=== PATIENT | male | born 1990 | race Caucasian/White ===

== ENCOUNTER 2016-07-23 22:57 | Emergency (ER) | payer BC ==
[2016-07-23] MEDS ORDERED: Sodium Chloride 0.9% 2.5 ML Syringe FLUSH PRN (23:10)
[2016-07-23] MEDS ORDERED: Sodium Chloride 0.9% 10 ML Syringe FLUSH PRN (23:10)
[2016-07-23] MEDS ORDERED: Ketorolac 30 MG/ML SDV IVPUSH ONE (23:11)
[2016-07-23] MEDS ORDERED: HYDROmorphone 2 MG/ML Syringe IVPUSH ONE (23:11)
[2016-07-23] MEDS ORDERED: Sodium Chloride 0.9% 1,000 ML IV ONE (23:11)
[2016-07-23] MEDS ORDERED: Ondansetron 4 MG/2 ML SDV IVPUSH ONE (23:11)
--- NOTE | 2016-07-23 23:14 | EDM.PDOC ---
ED HPI GENERAL MEDICAL PROBLEM - General Chief Complaint: Abdominal Pain Stated Complaint: ABDOMINAL PAIN Time Seen by Provider: 07/23/16 22:58 - History of Present Illness INITIAL COMMENTS - FREE TEXT/NARRATIVE: HISTORY AND PHYSICAL: History of present illness: The patient is a healthy 26-year-old male with no stated medical problems who presents with complaints of sudden onset of right lower abdominal pain that started when he was resting at home. The patient had just eaten some grilled chicken and had had a normal day without any systemic complaints when the pain suddenly occurred. Patient denies any swelling or discomfort in his testicles and has no flank pain. Patient had 2 episodes of vomiting secondary to the pain prior to coming here and had normal bowel movements earlier today. Patient has not taken anything for pain prior to coming here. He denies any recent trauma to his abdomen and denies STD risks. Patient says he had the pain approximately one year ago and was seen here for similar but it was not as severe. The patient also said he had some discomfort several days ago but again not this level. Review of systems: As per history of present illness and below otherwise all systems reviewed and negative. Past medical history: As per history of present illness and as reviewed below otherwise noncontributory. Surgical history: As per history of present illness and as reviewed below otherwise noncontributory. Social history: No reported history of drug or alcohol abuse. Family history: As per history of present illness and as reviewed below otherwise noncontributory. Physical exam: General: Well-developed well-nourished male is nontoxic and is rolling around the bed and very anxious grabbing his right side. Vital signs been noted by me HEENT: Atraumatic, normocephalic, negative for conjunctival pallor or scleral icterus, mucous membranes moist, throat clear, neck supple, nontender, trachea midline. Lungs: Clear to auscultation, breath sounds equal bilaterally, chest nontender. Heart: S1S2, regular, negative for clicks, rubs, or JVD. Abdomen: Soft, nondistended, hypoactive bowel sounds, mildly tender on deep palpation in the right lower quadrant without rebound or guarding there is no tympany. Negative for masses or hepatosplenomegaly. Negative for costovertebral tenderness. Pelvis: Stable nontender. Genitourinary: Deferred. Rectal: Deferred. Extremities: Atraumatic, negative for cords or calf pain. Neurovascular unremarkable. Neuro: Awake, alert, oriented. Cranial nerves II through XII unremarkable. Cerebellum unremarkable. Motor and sensory unremarkable throughout. Exam nonfocal. Diagnostics: CBC CMP UA urine culture CT scan of the abdomen and pelvis Therapeutics: IV fluids Zofran Toradol Dilaudid Flomax Patient states he is still having some discomfort with like to try to go home and I will give him pain medication Zofran and Flomax for home Impression: Right ureterolithiasis Definitive disposition and diagnosis as appropriate pending reevaluation and review of above. RLQ Pain Score (Numeric/FACES): 9 - Related Data Allergies Allergy/AdvReac Type Severity Reaction Status Date / Time No Known Allergies Allergy Verified 07/23/16 23:07 Home Meds: Home Meds . [No Known Home Meds] 06/02/15 [History] Past Medical History HEENT History: Reports: None Cardiovascular History: Reports: Heart murmur Respiratory History: Reports: None Gastrointestinal History: Reports: None Genitourinary History: Reports: None Musculoskeletal History: Reports: Other (see below) Other Musculoskeletal History: Partial amputation Neurological History: Reports: None Psychiatric History: Reports: None Endocrine/Metabolic History: Reports: None Hematologic History: Reports: None Immunologic History: Reports: None Oncologic (Cancer) History: Reports: None Dermatologic History: Reports: None - Infectious Disease History Infectious Disease History: Reports: Chicken pox - Past Surgical History HEENT Surgical History: Reports: Other (see below) Other HEENT Surgeries/Procedures: Left Ear FB surgery Musculoskeletal Surgical History: Reports: Other (see below) Other Musculoskeletal Surgeries/Procedures:: 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 ED EXAM, GENERAL - Physical Exam Exam: See Below (See dictation) Course - Vital Signs Last Recorded V/S: Last Vital Signs Temp 36.9 C 07/23/16 23:10 Pulse 118 H 07/23/16 23:10 Resp 18 07/23/16 23:10 BP 134/96 H 07/23/16 23:10 Pulse Ox 95 07/23/16 23:10 - Orders/Labs/Meds Orders: Active Orders 24 hr Category Date Time Status Communication Order [RC] STAT Care 07/24/16 00:30 Active Abdomen Pelvis w wo Cont [CT] Stat Exams 07/23/16 23:10 Taken CULTURE URINE [RM] Stat Lab 07/23/16 23:50 Received Sodium Chloride 0.9% [Saline Flush] Med 07/23/16 23:10 Active 10 ml FLUSH ASDIRECTED PRN Sodium Chloride 0.9% [Saline Flush] Med 07/23/16 23:10 Active 2.5 ml FLUSH ASDIRECTED PRN Saline Lock Insert [OM.PC] Stat Oth 07/23/16 23:10 Ordered Medication Orders Sodium Chloride (Saline Flush) 10 ml FLUSH ASDIRECTED PRN PRN Reason: Keep Vein Open Sodium Chloride (Saline Flush) 2.5 ml FLUSH ASDIRECTED PRN PRN Reason: Keep Vein Open Labs: Laboratory Tests 07/23/16 07/23/16 07/23/16 Range/Units 23:05 23:05 23:50 WBC 11.34 H (4.0-11.0) K/uL RBC 5.08 (4.50-5.90) M/uL Hgb 15.0 (13.0-17.0) g/dL Hct 43.4 (38.0-50.0) % MCV 85.4 (80.0-98.0) fL MCH 29.5 (27.0-32.0) pg MCHC 34.6 (31.0-37.0) g/dL RDW Std Deviation 38.8 (28.0-62.0) fl RDW Coeff of Saeed 13 (11.0-15.0) % Plt Count 244 (150-400) K/uL MPV 10.50 (7.40-12.00) fL Neut % (Auto) 33.9 L (48.0-80.0) % Lymph % (Auto) 58.0 H (16.0-40.0) % [place] % (Auto) 5.2 (0.0-15.0) % Eos % (Auto) 2.7 (0.0-7.0) % Baso % (Auto) 0.2 (0.0-1.5) % Neut # (Auto) 3.8 (1.4-5.7) K/uL Lymph # (Auto) 6.6 H (0.6-2.4) K/uL [place] # (Auto) 0.6 (0.0-0.8) K/uL Eos # (Auto) 0.3 (0.0-0.7) K/uL Baso # (Auto) 0.0 (0.0-0.1) K/uL Nucleated RBC % 0.0 /100WBC Nucleated RBCs # 0 K/uL Sodium 142 (136-146) mmol/L Potassium 3.7 (3.5-5.1) mmol/L Chloride 107 (98-110) mmol/L Carbon Dioxide 21 (21-31) mmol/L BUN 19 (6.0-23.0) mg/dL Creatinine 1.2 (0.6-1.5) mg/dL Est Cr Clr Drug Dosing 94.92 mL/min Estimated GFR (MDRD) > 60.0 ml/min Glucose 114 H (60-110) mg/dL Calcium 9.7 (8.8-10.8) mg/dL Total Bilirubin 0.5 (0.1-1.5) mg/dL AST 24 (5-40) IU/L ALT 20 (8-54) IU/L Alkaline Phosphatase 48 (40-150) Total Protein 7.8 (6.0-8.0) g/dL Albumin 4.6 (3.5-5.0) g/dL Globulin 3.2 (2.0-3.5) g/dL Albumin/Globulin Ratio 1.4 (1.3-2.8) Urine Color YELLOW Urine Appearance CLEAR Urine pH 7.0 (5.0-8.0) Ur Specific [place] 1.015 (1.001-1.035) Urine Protein NEGATIVE (NEGATIVE) mg/dL Urine Glucose (UA) NEGATIVE (NEGATIVE) mg/dL Urine Ketones TRACE H (NEGATIVE) mg/dL Urine Occult Blood TRACE-INTACT (NEGATIVE) Urine Nitrite NEGATIVE (NEGATIVE) Urine Bilirubin NEGATIVE (NEGATIVE) Urine Urobilinogen 0.2 (<2.0) EU/dL Ur Leukocyte Esterase NEGATIVE (NEGATIVE) Urine RBC 2-3 (0-2/HPF) Urine WBC 1-3 (0-5/HPF) Ur Epithelial Cells OCCASIONAL (NONE-FEW) Urine Bacteria RARE (NEGATIVE) Meds: Medications Generic Name Dose Route Start Last Admin Trade Name Carina PRN Reason Stop Dose Admin Sodium Chloride 10 ml 07/23/16 23:10 Saline Flush FLUSH ASDIRECTED PRN Keep Vein Open Sodium Chloride 2.5 ml 07/23/16 23:10 Saline Flush FLUSH ASDIRECTED PRN Keep Vein Open Discontinued Medications Generic Name Dose Route Start Last Admin Trade Name Carina PRN Reason Stop Dose Admin Diphenhydramine HCl 50 mg 07/24/16 00:37 Benadryl IVPUSH 07/24/16 00:38 ONETIME ONE Hydromorphone HCl 1 mg 07/23/16 23:11 07/23/16 23:29 Dilaudid IVPUSH 07/23/16 23:12 1 mg ONETIME ONE Administration Hydromorphone HCl 1 mg 07/24/16 00:07 07/24/16 00:14 Dilaudid IVPUSH 07/24/16 00:08 1 mg ONETIME ONE Administration Sodium Chloride 1,000 mls @ 999 mls/hr 07/23/16 23:11 07/23/16 23:28 Normal Saline IV 07/24/16 00:11 999 mls/hr STAT ONE Administration Iopamidol 100 ml 07/24/16 00:08 07/24/16 00:09 Isovue-370 (76%) IV 07/24/16 00:09 100 ml ONETIME ONE Administration Ketorolac Tromethamine 30 mg 07/23/16 23:11 07/23/16 23:30 Toradol IVPUSH 07/23/16 23:12 30 mg ONETIME ONE Administration Ondansetron HCl 4 mg 07/23/16 23:11 07/23/16 23:28 Zofran IVPUSH 07/23/16 23:12 4 mg ONETIME ONE Administration Tamsulosin HCl 0.4 mg 07/24/16 00:30 07/24/16 00:35 Flomax PO 07/24/16 00:31 0.4 mg ONETIME ONE Administration Departure - Departure Time of Disposition: 01:04 Disposition: Home, Self-Care 01 Condition: good Clinical Impression: Ureterolithiasis, Kidney stones Forms: ED Department Discharge Additional Instructions: The following information is given to patients seen in the emergency department who are being discharged to home. This information is to outline your options for follow-up care. We provide all patients seen in our emergency department with a follow-up referral. The need for follow-up, as well as the timing and circumstances, are variable depending upon the specifics of your emergency department visit. If you don't have a primary care physician on staff, we will provide you with a referral. We always advise you to contact your personal physician following an emergency department visit to inform them of the circumstance of the visit and for follow-up with them and/or the need for any referrals to a consulting specialist. The emergency department will also refer you to a specialist when appropriate. This referral assures that you have the opportunity for followup care with a specialist. All of these measure are taken in an effort to provide you with optimal care, which includes your followup. Under all circumstances we always encourage you to contact your private physician who remains a resource for coordinating your care. When calling for followup care, please make the office aware that this follow-up is from your recent emergency room visit. If for any reason you are refused follow-up, please contact the [facility] emergency department at and ask to speak to the emergency department charge nurse. [facility] Primary care- Internal Medicine and [facility] [address] [place] [id number] [facility] Specialty Care-Urology [address] [place] [id number] Please push hydration and strain all urine looking for the stone. Take all medications as needed and take Flomax as prescribed. Please call and followup with primary care and our urologist using resources given to you today and return to the ER as needed and as discussed. - My Orders Last 24 Hours: My Active Orders 07/23/16 23:10 Abdomen Pelvis w wo Cont [CT] Stat Sodium Chloride 0.9% [Saline Flush] 10 ml FLUSH ASDIRECTED PRN Sodium Chloride 0.9% [Saline Flush] 2.5 ml FLUSH ASDIRECTED PRN Saline Lock Insert [OM.PC] Stat 07/23/16 23:50 CULTURE URINE [RM] Stat 07/24/16 00:30 Communication Order [RC] STAT - Assessment/Plan Last 24 Hours: My Active Orders 07/23/16 23:10 Abdomen Pelvis w wo Cont [CT] Stat Sodium Chloride 0.9% [Saline Flush] 10 ml FLUSH ASDIRECTED PRN Sodium Chloride 0.9% [Saline Flush] 2.5 ml FLUSH ASDIRECTED PRN Saline Lock Insert [OM.PC] Stat 07/23/16 23:50 CULTURE URINE [RM] Stat 07/24/16 00:30 Communication Order [RC] STAT
[2016-07-23 23:33] LABS: CHLORIDE,CL 107 mmol/L (98-110); SODIUM,NA 142 mmol/L (136-146)
[2016-07-24] MEDS ORDERED: HYDROmorphone 2 MG/ML Syringe IVPUSH ONE (00:07)
[2016-07-24] MEDS ORDERED: Iopamidol 755 MG/ML 50 ML Bottle IV ONE (00:08)
[2016-07-24] MEDS ORDERED: Tamsulosin 0.4 MG Cap.ER PO ONE (00:30)
[2016-07-24] MEDS ORDERED: diphenhydrAMINE 50 MG/ML SDV IVPUSH ONE (00:37)
[2016-07-24] MEDS ORDERED: Ondansetron 4 MG/2 ML SDV IVPUSH ONE (01:09)
[2016-07-24 01:10] VITALS: BP 137/65
--- NOTE | 2016-07-24 14:27 | CT ---
EXAM DATE: 07/23/16 PATIENT'S AGE: 26 Patient: GABRIEL BIGGS Facility: [place], [place] Site . Site : 1992 Study: CT Abdomen/Pelvis W/ and W/O Cont [id number]/11/2017 12:07:27 AM Ordering Physician: Tamiko Donaldson Final Report: INDICATION: SEVERE LOWER RIGHT ABDOMINAL PAIN TECHNIQUE: CT abdomen and pelvis acquired with and with IV contrast. COMPARISON: 06/02/2015 FINDINGS: Lower chest: Unremarkable. Liver: Unremarkable. Spleen: Unremarkable. Pancreas: Unremarkable. Gallbladder and bile ducts: Unremarkable. Kidneys: 3 mm calculus just proximal to the right ureterovesicular junction with associated right-sided hydroureter / hydronephrosis. Additional bilateral nonobstructing intrarenal calculi. . Adrenal glands: Unremarkable. GI tract: Unremarkable. Appendix is normal. Vascular structures: Negative. No sign of aneurysm. Lymph nodes: Unremarkable. Miscellaneous: Unremarkable. No free air or significant free fluid. Pelvic Organs: Unremarkable. Bones: Unremarkable for age. IMPRESSION: 3 mm calculus just proximal to the right ureterovesicular junction with associated right-sided hydroureter / hydronephrosis. Additional bilateral nonobstructing intrarenal calculi. Dictated by Jones Sandoval MD @ 07/24/2016 12:17:37 AM Dictated by: Jones Sandoval MD @ 07/24/2016 00:18:02 (Electronic Signature) Report Signed by Proxy and Original Signed Document filed in the Medical Record. [facility]
== END 2016-07-24 01:30 | disposition home or self-care (01) ==
LOC: MW.ED 22:57
DX: N13.2 Hydronephrosis with renal and ureteral calculous obstruction (principal)
CPT/HCPCS: 36415; 74178; 80053; 81001; 85025; 87086; 96361; 96374; 96375; 96376; 99284; A9270; J1170; J1200; J1885; J2405; J7040; Q9967

== ENCOUNTER 2016-07-26 09:35 | Emergency (ER) | payer BC ==
[2016-07-26] MEDS ORDERED: Sodium Chloride 0.9% 2.5 ML Syringe FLUSH PRN (09:47)
[2016-07-26] MEDS ORDERED: Sodium Chloride 0.9% 10 ML Syringe FLUSH PRN (09:47)
[2016-07-26] MEDS ORDERED: Ondansetron 4 MG/2 ML SDV IVPUSH ONE (09:47)
[2016-07-26] MEDS ORDERED: Sodium Chloride 0.9% 1,000 ML IV ONE (09:47)
[2016-07-26] MEDS ORDERED: Ketorolac 30 MG/ML SDV IVPUSH ONE (09:47)
[2016-07-26] MEDS ORDERED: HYDROmorphone 1 MG/ML Syringe IVPUSH PRN (10:06)
--- NOTE | 2016-07-26 10:55 | EDM.PDOC ---
[id number]: ABD PAIN Time Seen by Provider: 07/26/16 09:36 Source of Information: Reports: Patient History Limitations: Reports: No limitations - History of Present Illness INITIAL COMMENTS - FREE TEXT/NARRATIVE: History of present illness: [] Patient was diagnosed with a 3 mm right kidney stone in the UPJ with hydronephrosis earlier this week and has an appointment to see a urologist this afternoon. Last night he started vomiting and has been unable to take his pain medicines. He complains of right lower corner and pelvic pain that is severe and cramping and continued vomiting. He denies any fevers or chills. Review of systems: As per history of present illness and below otherwise all systems reviewed and negative. Past medical history: As per history of present illness and as reviewed below otherwise noncontributory. Surgical history: As per history of present illness and as reviewed below otherwise noncontributory. Social history: No reported history of drug or alcohol abuse. Family history: As per history of present illness and as reviewed below otherwise noncontributory. Physical exam: General: Well developed, well nourished in NAD HEENT: Atraumatic, normocephalic, pupils reactive, negative for conjunctival pallor or scleral icterus, mucous membranes moist, throat clear, neck supple, nontender, trachea midline. Lungs: Clear to auscultation, breath sounds equal bilaterally, chest nontender. Heart: S1S2, regular, negative for clicks, rubs, or JVD. Abdomen: Soft, nondistended, nontender. Negative for masses or hepatosplenomegaly. Negative for costovertebral tenderness. Pelvis: Stable nontender. Genitourinary: Deferred. Rectal: Deferred. Extremities: Atraumatic, negative for cords or calf pain. Neurovascular unremarkable. Neuro: Awake, alert, oriented. Cranial nerves II through XII unremarkable. Cerebellum unremarkable. Motor and sensory unremarkable throughout. Exam nonfocal. Diagnostics: [] Therapeutics: [] Patient was hydrated and given Toradol for pain improvement Impression: [] Ureteral colic Plan: [] Followup with urologist today as scheduled Definitive disposition and diagnosis as appropriate pending reevaluation and review of above. - Related Data Allergies/ADRs: Allergies Allergy/AdvReac Type Severity Reaction Status Date / Time No Known Allergies Allergy Verified 07/26/16 09:44 Home Meds: Home Meds Ondansetron HCl [Zofran] 4 mg PO Q6HR PRN #12 tablet 07/26/16 [Rx] Past Medical History - Past Health History Medical/Surgical History: Denies Medical/Surgical History HEENT History: Reports: None Cardiovascular History: Reports: Heart murmur Respiratory History: Reports: None Gastrointestinal History: Reports: None Genitourinary History: Reports: None Musculoskeletal History: Reports: Other (see below) Other Musculoskeletal History: Partial amputation Neurological History: Reports: None Psychiatric History: Reports: None Endocrine/Metabolic History: Reports: None Hematologic History: Reports: None Immunologic History: Reports: None Oncologic (Cancer) History: Reports: None Dermatologic History: Reports: None - Infectious Disease History Infectious Disease History: Reports: Chicken pox - Past Surgical History HEENT Surgical History: Reports: Other (see below) Other HEENT Surgeries/Procedures: Left Ear FB surgery Musculoskeletal Surgical History: Reports: Other (see below) Other Musculoskeletal Surgeries/Procedures:: 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 Social & Family History - Family History Family Medical History: Noncontributory - Tobacco Use Smoking Status *Q: Never Smoker Second Hand Smoke Exposure: No - Recreational Drug Use Recreational Drug Use: Yes Drug Use in Last 12 Months: Yes Recreational Drug Type: Reports: Marijuana/Hashish Recreational Drug Use Frequency: Rarely - Living Situation & Occupation Living situation: Reports: single Occupation: employed ED ROS GENERAL - Review of Systems Review Of Systems: See Below (See history of present illness) ED EXAM, GI/ABD - Physical Exam Exam: See Below (See history of present illness) Course - Vital Signs Last Recorded V/S: Last Vital Signs Temp 37.2 C 07/26/16 11:13 Pulse 75 07/26/16 11:13 Resp 18 07/26/16 11:13 BP 142/75 H 07/26/16 11:13 Pulse Ox 98 07/26/16 11:13 - Orders/Labs/Meds Orders: Active Orders 24 hr Category Date Time Status Peripheral IV Insertion Adult [OM.PC] Stat Oth 07/26/16 09:44 Ordered Meds: Medications Discontinued Medications Generic Name Dose Route Start Last Admin Trade Name Freq PRN Reason Stop Dose Admin Hydromorphone HCl 0.5 mg 07/26/16 10:06 Dilaudid IVPUSH Q1H PRN Pain Sodium Chloride 1,000 mls @ 999 mls/hr 07/26/16 09:47 07/26/16 10:03 Normal Saline IV 07/26/16 10:47 999 mls/hr .Bolus ONE Administration Ketorolac Tromethamine 30 mg 07/26/16 09:47 07/26/16 10:03 Toradol IVPUSH 07/26/16 09:48 30 mg ONETIME ONE Administration Ondansetron HCl 4 mg 07/26/16 09:47 07/26/16 10:03 Zofran IVPUSH 07/26/16 09:48 4 mg ONETIME ONE Administration Sodium Chloride 10 ml 07/26/16 09:47 07/26/16 10:04 Saline Flush FLUSH 10 ml ASDIRECTED PRN Administration Keep Vein Open Sodium Chloride 2.5 ml 07/26/16 09:47 07/26/16 10:04 Saline Flush FLUSH 2.5 ml ASDIRECTED PRN Administration Keep Vein Open Departure - Departure Time of Disposition: 10:53 Disposition: Home, Self-Care 01 Condition: good Clinical Impression: Ureterolithiasis Prescriptions: Ondansetron HCl [Zofran] 4 mg PO Q6HR PRN #12 tablet PRN Reason: Nausea Instructions: Kidney Stones Referrals: PCP,None [Primary Care Provider] - Forms: ED Department Discharge Additional Instructions: The following information is given to patients seen in the emergency department who are being discharged to home. This information is to outline your options for follow-up care. We provide all patients seen in our emergency department with a follow-up referral. The need for follow-up, as well as the timing and circumstances, are variable depending upon the specifics of your emergency department visit. If you don't have a primary care physician on staff, we will provide you with a referral. We always advise you to contact your personal physician following an emergency department visit to inform them of the circumstance of the visit and for follow-up with them and/or the need for any referrals to a consulting specialist. The emergency department will also refer you to a specialist when appropriate. This referral assures that you have the opportunity for follow-up care with a specialist. All of these measure are taken in an effort to provide you with optimal care, which includes your follow-up. Under all circumstances we always encourage you to contact your private physician who remains a resource for coordinating your care. When calling for follow-up care, please make the office aware that this follow-up is from your recent emergency room visit. If for any reason you are refused follow-up, please contact the [facility] Emergency Department at and asked to speak to the emergency department charge nursePorsche Cespedes for mina [facility] Specialty Care - Urology [address] [place] [id number] - My Orders Last 24 Hours: My Active Orders 07/26/16 09:44 Peripheral IV Insertion Adult [OM.PC] Stat - Assessment/Plan Last 24 Hours: My Active Orders 07/26/16 09:44 Peripheral IV Insertion Adult [OM.PC] Stat
[2016-07-26 11:15] VITALS: BP 142/75
== END 2016-07-26 11:13 | disposition home or self-care (01) ==
LOC: MW.ED 09:35
DX: N20.1 Calculus of ureter (principal)
CPT/HCPCS: 96361; 96374; 96375; 99283; J1885; J2405; J7040; 99284

== ENCOUNTER 2016-10-22 10:19 | Day surgery (SDC) | payer BC ==
--- NOTE | 2016-10-22 10:45 | PCM.PREANE ---
Preanesthetic Assessment - Anesthesia/Transfusion/Family Hx Anesthesia History: Prior Anesthesia Without Reaction Family History of Anesthesia Reaction: No Transfusion History: No Prior Transfusion(s) Intubation History: Unknown - Review of Systems General: No Symptoms Pulmonary: No Symptoms Cardiovascular: No Symptoms Gastrointestinal: Hematochezia Neurological: No Symptoms, Change in Speech - Physical Assessment O2 Sat by Pulse Oximetry: 98 Respiratory Rate: 16 Vital Signs: Last Vital Signs Temp 36.3 C 10/22/16 10:35 Pulse 97 10/22/16 10:35 Resp 16 10/22/16 10:35 BP 119/80 10/22/16 10:35 Pulse Ox 98 10/22/16 10:35 Height: 1.75 m Weight: 83.461 kg ASA Class: 2 Mental Status: Alert & Oriented x3 Airway Class: Mallampati = 2 Dentition: Reports: Normal Dentition Thyro-Mental Finger Breadths: 3 Mouth Opening Finger Breadths: 3 ROM/Head Extension: Full Lungs: Clear to auscultation, Normal respiratory effort Cardiovascular: Regular Rate, Regular Rhythm - Allergies Allergies/Adverse Reactions: Allergies Allergy/AdvReac Type Severity Reaction Status Date / Time bee stings Allergy Hives Uncoded 10/17/16 10:13 - Blood Blood Available: No - Anesthesia Plan Pre-Op Medication Ordered: None - Acknowledgements Anesthesia Type Planned: MAC Pt an Appropriate Candidate for the Planned Anesthesia: Yes Alternatives and Risks of Anesthesia Discussed w Pt/Guardian: Yes Pt/Guardian Understands and Agrees with Anesthesia Plan: Yes PreAnesthesia Questionnaire - Past Health History Medical/Surgical History: Denies Medical/Surgical History HEENT History: Reports: Allergic Rhinitis Cardiovascular History: Reports: Arrhythmia Respiratory History: Reports: None Gastrointestinal History: Reports: None Genitourinary History: Reports: Neurogenic Bladder Musculoskeletal History: Neurological History: Reports: Migraines Psychiatric History: Reports: Anxiety Endocrine/Metabolic History: Reports: None Hematologic History: Reports: None Immunologic History: Reports: None Oncologic (Cancer) History: Reports: None Dermatologic History: Reports: Eczema - Infectious Disease History Infectious Disease History: Reports: Chicken Pox - Past Surgical History Head Surgeries/Procedures: Reports: None HEENT Surgical History: Reports: Other (See Below) Other HEENT Surgeries/Procedures: Left Ear q-tip removal under anesthesia as a child Musculoskeletal Surgical History: Reports: Other (See Below) Other Musculoskeletal Surgeries/Procedures:: left hand surgery due to injury ( fingers got caught in fan) - SUBSTANCE USE Smoking Status *Q: Never Smoker Second Hand Smoke Exposure: No Recreational Drug Use History: Yes Recreational Drug Type: Reports: Marijuana/Hashish - HOME MEDS Home Medications: Home Meds Amitriptyline [Elavil] 25 mg PO BEDTIME 10/17/16 [History] Ascorbic Acid/Collagen Hydr [Collagen Plus Vit C] 3 tab PO DAILY 10/17/16 [ History] Biotin 1,000 mcg PO ASDIRECTED 10/17/16 [History] Fexofenadine [Nyasia] 180 mg PO DAILY PRN 10/17/16 [History] Loratadine 10 mg PO DAILY PRN 10/17/16 [History] Multivits-Minerals/FA/Lycopene [One Daily Tablet] 1 tab PO DAILY 10/17/16 [ History] SUMAtriptan Succinate [Imitrex] 25 mg PO ASDIRECTED PRN 10/17/16 [History] Vitamin B Complex 1 tab PO DAILY 10/17/16 [History]
[2016-10-22] MEDS ORDERED: Propofol 200 MG/20 ML SDV ONE ×2 (10:54→11:06)
[2016-10-22] MEDS ORDERED: Lidocaine 2% 5 ML SDV ONE ×2 (10:54→11:05)
[2016-10-22] MEDS ORDERED: fentaNYL 100 MCG/2 ML SDV ONE (11:06)
[2016-10-22] MEDS ORDERED: Midazolam 1 MG/ML 2 ML SDV ONE (11:06)
--- NOTE | 2016-10-22 11:37 | PCM.OPNOTE ---
- General Post-Op/Procedure Note Date of Surgery/Procedure: 10/22/16 Operative Procedure(s): Colonoscopy with cecal biopsy Pre Op Diagnosis: Change in bowel habits. Rectal bleeding. Family history of colon cancer. Post-Op Diagnosis: No colonic neoplasia. Anesthesia Technique: MAC (ASA II) Primary Surgeon: Rohan Fierro Condition: Good Free Text/Narrative:: Dictation [id number] CPT CODE [id number]
[2016-10-22] MEDS ORDERED: Lactated Ringers 1,000 ML IV SCH (11:45)
[2016-10-22 12:17] VITALS: BP 111/62
--- NOTE | 2016-10-22 18:39 | OR ---
SURGEON: Rohan Fierro M.D. DATE OF PROCEDURE: 10/22/2016 OPERATION PERFORMED: Colonoscopy with cecal biopsy. ANESTHESIA: MAC. ASA CLASSIFICATION: II. PREOPERATIVE DIAGNOSES: 1. Change in bowel habits. 2. Rectal bleeding. 3. Family history of colon cancer. POSTOPERATIVE DIAGNOSIS: No obvious neoplasia. DESCRIPTION OF PROCEDURE: The patient was taken to the endoscopy room and positioned on the endoscopy table in the left lateral decubitus position. Time-out was called for appropriate identification of patient and procedure. The colonoscope was inserted into the rectum and advanced with minimal difficulty to the cecum where the cecum was biopsied for random tissue diagnosis. The colonoscope was retroflexed in the cecum to visualize the ascending colon from below then straightened and slowly withdrawn. The cecum, ascending colon, hepatic flexure, transverse colon, splenic flexure, descending colon, sigmoid colon, rectum showed no obvious tumors, polyps, diverticula, or angiodysplastic changes. There were no obvious acute inflammatory changes. Biopsies of the cecum were obtained empirically. Once the colonoscope was withdrawn to the rectum, it was retroflexed to visualize the anal orifice from above. No tumors, polyps, or acute hemorrhoidal changes were noted. The colonoscope was then straightened, the rectum aspirated, and the colonoscope removed. The patient tolerated the procedure well and was taken to recovery room in stable condition. COLLEEN ABURTO /[id number]
== END 2016-10-22 12:18 | disposition home or self-care (01) ==
LOC: MW.SDS 10:19
PROVIDERS: ATTEND Surgery
PROC: 0DBH8ZX Excision of Cecum, Via Natural or Artificial Opening Endoscopic, Diagnostic (ICD-10-PCS; principal; 2016-10-22)
DX: K62.5 Hemorrhage of anus and rectum (principal); F41.9 Anxiety disorder, unspecified; N20.1 Calculus of ureter; N31.9 Neuromuscular dysfunction of bladder, unspecified; Z91.030 Bee allergy status; Z79.899 Other long term (current) drug therapy; Z98.890 Other specified postprocedural states; Z68.27 Body mass index [BMI] 27.0-27.9, adult
CPT/HCPCS: 45380; J2250; J3010; 88305; J2704

== ENCOUNTER 2017-08-26 15:41 | Emergency (ER) | payer BC ==
[2017-08-26] MEDS ORDERED: Sodium Chloride 0.9% 10 ML Syringe FLUSH PRN (15:57)
[2017-08-26] MEDS ORDERED: Sodium Chloride 0.9% 2.5 ML Syringe FLUSH PRN (15:57)
[2017-08-26] MEDS ORDERED: Ketorolac 30 MG/ML SDV IVPUSH ONE (16:07)
[2017-08-26] MEDS ORDERED: Sodium Chloride 0.9% 1,000 ML IV ONE ×2 (16:08→16:49)
[2017-08-26 16:14] VITALS: BP 133/76
[2017-08-26] MEDS ORDERED: Tamsulosin 0.4 MG Cap.ER PO ONE (16:18)
--- NOTE | 2017-08-26 16:25 | EDM.PDOC ---
ED HPI GENERAL MEDICAL PROBLEM - General Chief Complaint: Flank Pain Stated Complaint: ABD PAIN ON LOWER LT SIDE Time Seen by Provider: 08/26/17 16:06 Source of Information: Reports: Patient History Limitations: Reports: No Limitations - History of Present Illness INITIAL COMMENTS - FREE TEXT/NARRATIVE: History of present illness: []Patient has a history of kidney stones and had one on the right ureter ago and has followed up with Dr. Gomes who told him there is another stone on the left be about a year before it passed. 3 days ago patient started feeling pain in his left flank that has progressively worsened. When the pain gets bad it causes him to vomit. He was going to come in at 5 AM this morning but after an episode of emesis he was able lay down and fall asleep after being alcohol. He denies fevers, chills, diarrhea.1 Review of systems: As per history of present illness and below otherwise all systems reviewed and negative. Past medical history: As per history of present illness and as reviewed below otherwise noncontributory. Surgical history: As per history of present illness and as reviewed below otherwise noncontributory. Social history: No reported history of drug or alcohol abuse. Family history: As per history of present illness and as reviewed below otherwise noncontributory. Physical exam: General: Well developed, well nourished in NAD HEENT: Atraumatic, normocephalic, pupils reactive, negative for conjunctival pallor or scleral icterus, mucous membranes moist, throat clear, neck supple, nontender, trachea midline. Lungs: Clear to auscultation, breath sounds equal bilaterally, chest nontender. Heart: S1S2, regular, negative for clicks, rubs, or JVD. Abdomen: Soft, nondistended, nontender no rebound or guarding. Negative for masses or hepatosplenomegaly. Left costovertebral tenderness. Pelvis: Stable nontender. Genitourinary: Deferred. Rectal: Deferred. Extremities: Atraumatic, negative for cords or calf pain. Neurovascular unremarkable. Neuro: Awake, alert, oriented. Cranial nerves II through XII unremarkable. Cerebellum unremarkable. Motor and sensory unremarkable throughout. Exam nonfocal. Diagnostics: []CBC normal chemistry shows BUN and creatinine 13/1.5, UA shows red blood cells present, CT scan shows moderate hydronephrosis with a 2 mm stone in the distal left [employer]: []IV hydrated, Flomax, morphine and Toradol given in the ED with relief of pain Impression: []Ureterolithiasis on the left Plan: []Follow-up with Dr. Gomes this week take Flomax, tramadol Zithromax as directed turn his symptoms worsen or change Definitive disposition and diagnosis as appropriate pending reevaluation and review of above. Flank Pain Score (Numeric/FACES): 5 - Related Data Allergies Allergy/AdvReac Type Severity Reaction Status Date / Time bee stings Allergy Hives Uncoded 08/26/17 16:02 Home Meds: Home Meds Ondansetron HCl [Zofran] 4 mg PO Q4HR #12 tablet 08/26/17 [Rx] Tamsulosin HCl [Flomax] 0.4 mg PO DAILY #14 cap.er.24h 08/26/17 [Rx] traMADol HCl [Tramadol HCl] 50 mg PO Q6H PRN #16 tablet 08/26/17 [Rx] Past Medical History - Past Health History Medical/Surgical History: Denies Medical/Surgical History HEENT History: Reports: Allergic Rhinitis Cardiovascular History: Reports: Arrhythmia Respiratory History: Reports: None Gastrointestinal History: Reports: None Genitourinary History: Reports: Neurogenic Bladder Musculoskeletal History: Neurological History: Reports: Migraines Psychiatric History: Reports: Anxiety Endocrine/Metabolic History: Reports: None Hematologic History: Reports: None Immunologic History: Reports: None Oncologic (Cancer) History: Reports: None Dermatologic History: Reports: Eczema - Infectious Disease History Infectious Disease History: Reports: Chicken Pox - Past Surgical History Head Surgeries/Procedures: Reports: None HEENT Surgical History: Reports: Other (See Below) Other HEENT Surgeries/Procedures: Left Ear q-tip removal under anesthesia as a child Musculoskeletal Surgical History: Reports: Other (See Below) Other Musculoskeletal Surgeries/Procedures:: left hand surgery due to injury ( fingers got caught in fan) Social & Family History - Family History Family Medical History: Noncontributory - Tobacco Use Smoking Status *Q: Never Smoker Second Hand Smoke Exposure: No - Caffeine Use Caffeine Use: Reports: Other - Recreational Drug Use Recreational Drug Use: No - Living Situation & Occupation Living situation: Reports: Single Occupation: Employed ED ROS GENERAL - Review of Systems Review Of Systems: See Below (See history of present illness) ED EXAM, RENAL/ - Physical Exam Exam: See Below (See history of present illness) Course - Vital Signs Last Recorded V/S: Last Vital Signs Temp 98.8 F 08/26/17 16:12 Pulse 88 08/26/17 16:12 Resp 21 H 08/26/17 16:12 BP 133/76 08/26/17 16:12 Pulse Ox 98 08/26/17 16:12 - Orders/Labs/Meds Orders: Active Orders 24 hr Category Date Time Status Abdomen Pelvis w Cont [CT] Stat Exams 08/26/17 17:12 Taken UA W/MICROSCOPIC [URIN] Stat Lab 08/26/17 16:26 Ordered Sodium Chloride 0.9% [Saline Flush] Med 08/26/17 15:57 Active 10 ml FLUSH ASDIRECTED PRN Sodium Chloride 0.9% [Saline Flush] Med 08/26/17 15:57 Active 2.5 ml FLUSH ASDIRECTED PRN Saline Lock Insert [OM.PC] Stat Oth 08/26/17 15:57 Ordered Medication Orders Sodium Chloride (Saline Flush) 10 ml FLUSH ASDIRECTED PRN PRN Reason: Keep Vein Open Last Admin: 08/26/17 16:02 Dose: 10 ml Sodium Chloride (Saline Flush) 2.5 ml FLUSH ASDIRECTED PRN PRN Reason: Keep Vein Open Last Admin: 08/26/17 16:04 Dose: 2.5 ml Labs: Laboratory Tests 08/26/17 08/26/17 08/26/17 Range/Units 16:05 16:05 16:26 WBC 9.74 (4.0-11.0) K/uL RBC 4.99 (4.50-5.90) M/uL Hgb 15.5 (13.0-17.0) g/dL Hct 43.0 (38.0-50.0) % MCV 86.2 (80.0-98.0) fL MCH 31.1 (27.0-32.0) pg MCHC 36.0 (31.0-37.0) g/dL RDW Std Deviation 40.5 (28.0-62.0) fl RDW Coeff of Saeed 13 (11.0-15.0) % Plt Count 228 (150-400) K/uL MPV 10.20 (7.40-12.00) fL Neut % (Auto) 66.9 (48.0-80.0) % Lymph % (Auto) 22.3 (16.0-40.0) % [place] % (Auto) 9.3 (0.0-15.0) % Eos % (Auto) 1.3 (0.0-7.0) % Baso % (Auto) 0.2 (0.0-1.5) % Neut # (Auto) 6.5 H (1.4-5.7) K/uL Lymph # (Auto) 2.2 (0.6-2.4) K/uL [place] # (Auto) 0.9 H (0.0-0.8) K/uL Eos # (Auto) 0.1 (0.0-0.7) K/uL Baso # (Auto) 0.0 (0.0-0.1) K/uL Nucleated RBC % 0.0 /100WBC Nucleated RBCs # 0 K/uL Sodium 142 (136-148) mmol/L Potassium 3.5 (3.5-5.1) mmol/L Chloride 107 (98-107) mmol/L Carbon Dioxide 23.8 (21.0-32.0) mmol/L BUN 13 (7.0-18.0) mg/dL Creatinine 1.5 H (0.8-1.3) mg/dL Est Cr Clr Drug Dosing TNP Estimated GFR (MDRD) 57.0 ml/min Glucose 110 H (74-106) mg/dL Calcium 10.2 H (8.5-10.1) mg/dL Total Bilirubin 1.0 (0.2-1.0) mg/dL AST 21 (15-37) IU/L ALT 29 (14-63) IU/L Alkaline Phosphatase 56 (46-116) U/L Total Protein 8.0 (6.4-8.2) g/dL Albumin 4.5 (3.4-5.0) g/dL Globulin 3.5 (2.0-3.5) g/dL Albumin/Globulin Ratio 1.3 (1.3-2.8) Lipase 116 (73-393) U/L Urine Color YELLOW Urine Appearance CLEAR Urine pH 6.0 (5.0-8.0) Ur Specific [place] 1.015 (1.001-1.035) Urine Protein TRACE (NEGATIVE) mg/dL Urine Glucose (UA) NEGATIVE (NEGATIVE) mg/dL Urine Ketones TRACE H (NEGATIVE) mg/dL Urine Occult Blood LARGE H (NEGATIVE) Urine Nitrite NEGATIVE (NEGATIVE) Urine Bilirubin SMALL H (NEGATIVE) Urine Ictotest NEGATIVE Urine Urobilinogen 0.2 (<2.0) EU/dL Ur Leukocyte Esterase TRACE (NEGATIVE) Urine RBC 10-20 (0-2/HPF) Urine WBC 3-5 (0-5/HPF) Ur Epithelial Cells RARE (NONE-FEW) Calcium Oxalate Crystal RARE (NEGATIVE) Urine Bacteria FEW (NEGATIVE) Meds: Medications Generic Name Dose Route Start Last Admin Trade Name Freq PRN Reason Stop Dose Admin Sodium Chloride 10 ml 08/26/17 15:57 08/26/17 16:02 Saline Flush FLUSH 10 ml ASDIRECTED PRN Administration Keep Vein Open Sodium Chloride 2.5 ml 08/26/17 15:57 08/26/17 16:04 Saline Flush FLUSH 2.5 ml ASDIRECTED PRN Administration Keep Vein Open Discontinued Medications Generic Name Dose Route Start Last Admin Trade Name Freq PRN Reason Stop Dose Admin Sodium Chloride 1,000 mls @ 999 mls/hr 08/26/17 16:08 08/26/17 16:11 Normal Saline IV 08/26/17 17:08 999 mls/hr .Bolus ONE Administration Sodium Chloride 1,000 mls @ 999 mls/hr 08/26/17 16:49 08/26/17 16:50 Normal Saline IV 08/26/17 17:49 999 mls/hr .Bolus ONE Administration Iopamidol 100 ml 08/26/17 17:57 08/26/17 17:57 Isovue-370 (76%) IVPUSH 08/26/17 17:58 100 ml ONETIME ONE Administration Ketorolac Tromethamine 30 mg 08/26/17 16:07 08/26/17 16:11 Toradol IVPUSH 08/26/17 16:08 30 mg ONETIME ONE Administration Morphine Sulfate 4 mg 08/26/17 16:49 08/26/17 16:53 Morphine IVPUSH 08/26/17 16:50 4 mg ONETIME ONE Administration Morphine Sulfate 4 mg 08/26/17 17:59 08/26/17 18:03 Morphine IVPUSH 08/26/17 18:00 4 mg ONETIME ONE Administration Ondansetron HCl 4 mg 08/26/17 16:49 08/26/17 16:53 Zofran IVPUSH 08/26/17 16:50 4 mg ONETIME ONE Administration Tamsulosin HCl 0.4 mg 08/26/17 16:18 08/26/17 16:44 Flomax PO 08/26/17 16:19 0.4 mg ONETIME ONE Administration Departure - Departure Time of Disposition: 18:49 Disposition: Home, Self-Care 01 Condition: Good Clinical Impression: Ureterolithiasis - Discharge Information Prescriptions: Ondansetron HCl [Zofran] 4 mg PO Q4HR #12 tablet Tamsulosin HCl [Flomax] 0.4 mg PO DAILY #14 cap.er.24h traMADol HCl [Tramadol HCl] 50 mg PO Q6H PRN #16 tablet PRN Reason: Pain Instructions: Kidney Stones, [id number] Referrals: PCP,None [Primary Care Provider] - Ron Gomes MD [Physician] - 2 Days (He should have follow-up in 1-2 days) Forms: ED Department Discharge Additional Instructions: The following information is given to patients seen in the emergency department who are being discharged to home. This information is to outline your options for follow-up care. We provide all patients seen in our emergency department with a follow-up referral. The need for follow-up, as well as the timing and circumstances, are variable depending upon the specifics of your emergency department visit. If you don't have a primary care physician on staff, we will provide you with a referral. We always advise you to contact your personal physician following an emergency department visit to inform them of the circumstance of the visit and for follow-up with them and/or the need for any referrals to a consulting specialist. The emergency department will also refer you to a specialist when appropriate. This referral assures that you have the opportunity for follow-up care with a specialist. All of these measure are taken in an effort to provide you with optimal care, which includes your follow-up. Under all circumstances we always encourage you to contact your private physician who remains a resource for coordinating your care. When calling for follow-up care, please make the office aware that this follow-up is from your recent emergency room visit. If for any reason you are refused follow-up, please contact the [facility] Emergency Department at and asked to speak to the emergency department charge nurse. Increase fluids take Flomax, tramadol and Zofran as directed. Dr. Gomes next available appointment. [facility] - Urology [address] [place] [id number] - My Orders Last 24 Hours: My Active Orders 08/26/17 15:57 Sodium Chloride 0.9% [Saline Flush] 10 ml FLUSH ASDIRECTED PRN Sodium Chloride 0.9% [Saline Flush] 2.5 ml FLUSH ASDIRECTED PRN Saline Lock Insert [OM.PC] Stat 08/26/17 16:26 UA W/MICROSCOPIC [URIN] Stat 08/26/17 17:12 Abdomen Pelvis w Cont [CT] Stat - Assessment/Plan Last 24 Hours: My Active Orders 08/26/17 15:57 Sodium Chloride 0.9% [Saline Flush] 10 ml FLUSH ASDIRECTED PRN Sodium Chloride 0.9% [Saline Flush] 2.5 ml FLUSH ASDIRECTED PRN Saline Lock Insert [OM.PC] Stat 08/26/17 16:26 UA W/MICROSCOPIC [URIN] Stat 08/26/17 17:12 Abdomen Pelvis w Cont [CT] Stat
[2017-08-26 16:40] LABS: CHLORIDE,CL 107 mmol/L (98-107); SODIUM,NA 142 mmol/L (136-148)
[2017-08-26] MEDS ORDERED: Ondansetron 4 MG/2 ML SDV IVPUSH ONE (16:49)
[2017-08-26] MEDS ORDERED: Morphine 4 MG/ML Syringe IVPUSH ONE ×2 (16:49→17:59)
[2017-08-26] MEDS ORDERED: Iopamidol 755 Mg/ML 100 ML Bottle IVPUSH ONE (17:57)
--- NOTE | 2017-08-27 14:30 | CT ---
EXAM DATE: 08/26/17 PATIENT'S AGE: 27 Patient: GABRIEL BIGGS Facility: [place], [place] Site . Site : 1992 Study: CT Abdomen W/ CONT [id number]/14/2018 6:05:56 PM Ordering Physician: Sam Ruvalcaba Final Report: HISTORY: Left lower quadrant pain. History of kidney stones. TECHNIQUE: The abdomen and pelvis were scanned using helical technique at 3 mm after 100 cc of Isovue-370. Sagittal and coronal reconstructions were performed. COMPARISON: 23 July 2016. FINDINGS: Lung bases: No infiltrate. Liver and gallbladder: The liver parenchyma is homogeneous. No calcified gallstones. Spleen, pancreas and adrenal glands: Unremarkable. Kidneys and bladder: There is a slightly delayed nephrogram left nephrogram with mild to moderate left-sided hydronephrosis. Mild dilatation of the distal right ureter. 2 mm stone is seen in the distal ureter at the ureterovesicular junction on axial image 124. The bladder is decompressed. No right-sided hydronephrosis. Retroperitoneum and lymph nodes: Aorta is normal caliber. No pathologic periaortic lymphadenopathy. GI tract: The stomach is distended with fluid. Fluid is seen in nondilated small bowel loops. No transition point. Normal air-filled appendix. The colon is predominantly decompressed. No diverticulitis. There is no free air in the abdomen. There is no free fluid in pelvis. Pelvic organ: Prostate is normal. Abdominal wall: Small fat containing umbilical hernia without inflammatory change. Osseous structures: Normal for age. IMPRESSION: 1. 2 mm stone is in the distal left ureter at the ureterovesicular junction with moderate left-sided hydronephrosis and slight delay of the left nephrogram. 2. Resolution of right-sided hydronephrosis from prior exam. 3. Normal appendix. Dictated by Loly Watson MD @ 08/26/2017 6:44:09 PM Please note that all CT scans at this facility use dose modulation, iterative reconstruction, and/or weight-based dosing when appropriate to reduce radiation dose to as low as reasonably achievable. Dictated by: Loly Watson MD @ 08/26/2017 18:44:30 (Electronic Signature) Report Signed by Proxy. [email or web address]
== END 2017-08-26 18:59 | disposition home or self-care (01) ==
LOC: MW.ED 15:41
DX: N13.2 Hydronephrosis with renal and ureteral calculous obstruction (principal); Z91.030 Bee allergy status
CPT/HCPCS: 36415; 74177; 80053; 81001; 83690; 85025; 96361; 96374; 96375; 99284; A9270; J1885; J2270; J2405; J7040; Q9967